=== PATIENT | female | born 1930 | race Caucasian/White ===

== ENCOUNTER 2018-07-07 10:35 | Emergency (ER) | payer MEDICARE, OTHER ==
--- NOTE | 2018-07-07 10:55 | EDM.PDOC ---
ED HPI GENERAL MEDICAL PROBLEM - General Stated Complaint: SOB Time Seen by Provider: 07/07/18 10:35 Source of Information: Reports: Patient, EMS, Family History Limitations: Reports: Altered Mental Status - History of Present Illness INITIAL COMMENTS - FREE TEXT/NARRATIVE: 87 y.o.w.f with a H/O Dementia came from an independent living place to the ED by EMS due to CP and SOB. BP at the scene 210/120 and her pulse ox was 88. As the pt arrived here in the ED, Chest pain subsided and her vitals were nl, not using O2. No Chest pain. Pt felt in her usual state of health. No N/V/D or any other acute med issues. BP 119/85 RR 18 Pulse ox 95% on RA Pulse 78 Temp 36.4 Onset Date: 07/07/18 Onset Time: 06:00 Duration: Intermittent Location: Reports: Chest Quality: Reports: Other (SOB) Severity: Moderate Improves with: Reports: None Worsens with: Reports: None Context: Reports: Other Associated Symptoms: Reports: Shortness of Breath, Other (H/O dementia) - Related Data Allergies Allergy/AdvReac Type Severity Reaction Status Date / Time Penicillins Allergy Cannot Verified 07/07/18 11:09 Remember venom-honey bee Allergy Hives Verified 07/07/18 11:09 [bee venom (honey bee)] Home Meds: Home Meds Donepezil HCl 10 mg PO DAILY 04/09/14 [History] Memantine HCl [Namenda Xr] 14 mg PO DAILY 05/24/14 [History] Calcium Citrate/Vitamin D2 [Calcium with Vit D Tablet] 1 each PO DAILY 07/07/18 [History] Cetirizine [ZyrTEC] 10 mg PO DAILY 07/07/18 [History] Cholecalciferol (Vitamin D3) [Vitamin D] 1 tab PO DAILY 07/07/18 [History] Cyanocobalamin (Vitamin B12) [Vitamin B12] 1,000 mcg PO DAILY 07/07/18 [History] Ferrous Sulfate 325 mg PO Q48H 07/07/18 [History] Furosemide 20 mg PO DAILY 07/07/18 [History] Multivitamin [Multi-Day Vitamins] 1 each PO DAILY 07/07/18 [History] ED ROS GENERAL - Review of Systems Review Of Systems: Unable To Obtain (Dementia) ED EXAM, GENERAL - Physical Exam Exam: See Below Exam Limited By: Altered Mental Status General Appearance: Alert, WD/WN, Mild Distress Eye Exam: Bilateral Eye: Normal Inspection Ears: Normal External Exam Ear Exam: Bilateral Ear: Auricle Normal Nose: Normal Inspection, Normal Mucosa, No Blood Throat/Mouth: Normal Inspection, Normal Lips, Normal Voice, No Airway Compromise Head: Atraumatic, Normocephalic Neck: Normal Inspection, Supple, Non-Tender, Full Range of Motion Respiratory/Chest: No Respiratory Distress, Lungs Clear, Normal Breath Sounds, No Accessory Muscle Use, Chest Non-Tender Cardiovascular: Normal Peripheral Pulses, Regular Rate, Rhythm, No Edema, No Gallop, No JVD Peripheral Pulses: 1+: Radial (L) Psychiatric: Other (dementia) Skin Exam: Warm, Dry, Intact, Normal Color, No Rash Lymphatic: No Adenopathy EKG INTERPRETATION EKG Date: 07/07/18 Time: 10:40 Rhythm: NSR Rate (Beats/Min): 78 [place]: Normal P-Wave: Present QRS: Normal ST-T: Normal QT: Normal Comparison: NA - No Prior EKG Course - Vital Signs Text/Narrative:: 87 y.o.w.f with a H/O Dementia came from an independent living place to the ED by EMS due to CP and SOB. BP at the scene 210/120 and her pulse ox was 88. As the pt arrived here in the ED, Chest pain subsided and her vitals were nl, not using O2. No Chest pain. Pt felt in her usual state of health. No N/V/D or any other acute med issues. BP 119/85 RR 18 Pulse ox 95% on RA Pulse 78 Temp 36.4 PE: WNWD W F with a H/O Dementia in her usual state of health Imaging: CXR: NAD as per RAD Labs: CBC, BMP, UA nl D-Dimer was 1.1 (elevated) however) Impression: Dementia, D- Dimer elevated, cause not determined Tx: None 12.40 pm: Family denied further W/U for the elevated D Dimer since the pt's vitals are were stable while here in the ED Reexam: Pt was stable in the ED Plan: D/C with instructions with Family's PC Last Recorded V/S: Last Vital Signs Temp 36.3 C 07/07/18 10:35 Pulse 75 07/07/18 12:00 Resp 16 07/07/18 12:00 BP 86/70 L 07/07/18 12:00 Pulse Ox 96 07/07/18 12:00 - Orders/Labs/Meds Orders: Active Orders 24 hr Category Date Time Status CXR [Chest 1V Frontal] [CR] Stat Exams 07/07/18 10:47 Taken Sodium Chloride 0.9% [Saline Flush] Med 07/07/18 11:00 Active 10 ml FLUSH ASDIRECTED PRN EKG 12 Lead [EK] Routine Ther 07/07/18 11:11 Ordered Medication Orders Sodium Chloride (Saline Flush) 10 ml FLUSH ASDIRECTED PRN PRN Reason: IV Use Last Admin: 07/07/18 11:00 Dose: 10 ml Labs: Laboratory Tests 07/07/18 07/07/18 07/07/18 Range/Units 10:55 10:55 10:55 WBC 7.6 (4.5-12.0) X10-3/uL RBC 4.57 (3.23-5.20) x10(6)uL Hgb 14.3 (11.5-15.5) g/dL Hct 41.9 (30.0-51.3) % MCV 91.6 (80-96) fL MCH 31.2 (27.7-33.6) pg MCHC 34.1 (32.2-35.4) g/dL RDW 12.7 (11.5-15.5) % Plt Count 263 (125-369) X10(3)uL MPV 8.9 (7.4-10.4) fL Neut % (Auto) 60.7 (46-82) % Lymph % (Auto) 25.1 (13-37) % [place] % (Auto) 8.0 (4-12) % Eos % (Auto) 6 H (1.0-5.0) % Baso % (Auto) 1 (0-2) % Neut # (Auto) 4.7 (1.6-8.3) # Lymph # (Auto) 1.9 (0.6-5.0) # [place] # (Auto) 0.6 (0.0-1.3) # Eos # (Auto) 0.4 (0.0-0.8) # Baso # (Auto) 0.0 (0.0-0.2) # PT 9.7 (8.7-11.1) INR 1.00 (0.89-1.13) D-Dimer, Quantitative (0.0-0.59) mg/LFEU Sodium 144 (135-145) mmol/L Potassium 3.8 (3.5-5.3) mmol/L Chloride 105 (100-110) mmol/L Carbon Dioxide 28 (21-32) mmol/L BUN 15 (7-18) mg/dL Creatinine 1.0 (0.55-1.02) mg/dL Est Cr Clr Drug Dosing TNP Estimated GFR (MDRD) 53 L (>60) BUN/Creatinine Ratio 15.0 (9-20) Glucose 96 (80-116) mg/dL Calcium 9.2 (8.6-10.2) mg/dL Total Bilirubin 0.4 (0.1-1.3) mg/dL Direct Bilirubin 0.10 (0.10-0.20) mg/dL AST 25 (5-25) IU/L ALT 24 (12-36) U/L Alkaline Phosphatase 91 (56-112) IU/L Troponin I (<0.017-0.056) ng/mL Total Protein 7.0 (6.0-8.0) g/dL Albumin 3.4 (3.2-4.6) g/dL Urine Color (YELLOW) Urine Appearance (CLEAR) Urine pH (5.0-6.5) Ur Specific [place] (1.010-1.025) Urine Protein (NEGATIVE) mg/dL Urine Glucose (UA) (NORMAL) mg/dL Urine Ketones (NEGATIVE) mg/dL Urine Occult Blood (NEGATIVE) Urine Nitrite (NEGATIVE) Urine Bilirubin (NEGATIVE) Urine Urobilinogen (NEGATIVE) mg/dL Ur Leukocyte Esterase (NEGATIVE) Urine RBC (0-5) Urine WBC (0-5) Ur Squamous Epith Cells (NS,R,O) 07/07/18 07/07/18 07/07/18 Range/Units 10:57 10:57 11:00 WBC (4.5-12.0) X10-3/uL RBC (3.23-5.20) x10(6)uL Hgb (11.5-15.5) g/dL Hct (30.0-51.3) % MCV (80-96) fL MCH (27.7-33.6) pg MCHC (32.2-35.4) g/dL RDW (11.5-15.5) % Plt Count (125-369) X10(3)uL MPV (7.4-10.4) fL Neut % (Auto) (46-82) % Lymph % (Auto) (13-37) % [place] % (Auto) (4-12) % Eos % (Auto) (1.0-5.0) % Baso % (Auto) (0-2) % Neut # (Auto) (1.6-8.3) # Lymph # (Auto) (0.6-5.0) # [place] # (Auto) (0.0-1.3) # Eos # (Auto) (0.0-0.8) # Baso # (Auto) (0.0-0.2) # PT (8.7-11.1) INR (0.89-1.13) D-Dimer, Quantitative 1.11 H (0.0-0.59) mg/LFEU Sodium (135-145) mmol/L Potassium (3.5-5.3) mmol/L Chloride (100-110) mmol/L Carbon Dioxide (21-32) mmol/L BUN (7-18) mg/dL Creatinine (0.55-1.02) mg/dL Est Cr Clr Drug Dosing Estimated GFR (MDRD) (>60) BUN/Creatinine Ratio (9-20) Glucose (80-116) mg/dL Calcium (8.6-10.2) mg/dL Total Bilirubin (0.1-1.3) mg/dL Direct Bilirubin (0.10-0.20) mg/dL AST (5-25) IU/L ALT (12-36) U/L Alkaline Phosphatase (56-112) IU/L Troponin I < 0.017 L (<0.017-0.056) ng/mL Total Protein (6.0-8.0) g/dL Albumin (3.2-4.6) g/dL Urine Color Yellow (YELLOW) Urine Appearance Clear (CLEAR) Urine pH 7.0 H (5.0-6.5) Ur Specific [place] 1.010 (1.010-1.025) Urine Protein Negative (NEGATIVE) mg/dL Urine Glucose (UA) Normal (NORMAL) mg/dL Urine Ketones Negative (NEGATIVE) mg/dL Urine Occult Blood Negative (NEGATIVE) Urine Nitrite Negative (NEGATIVE) Urine Bilirubin Negative (NEGATIVE) Urine Urobilinogen Normal (NEGATIVE) mg/dL Ur Leukocyte Esterase Negative (NEGATIVE) Urine RBC 0-5 (0-5) Urine WBC 0-5 (0-5) Ur Squamous Epith Cells Occasional (NS,R,O) Meds: Medications Generic Name Dose Route Start Last Admin Trade Name Freq PRN Reason Stop Dose Admin Sodium Chloride 10 ml 07/07/18 11:00 07/07/18 11:00 Saline Flush FLUSH 10 ml ASDIRECTED PRN Administration IV Use Departure - Departure Time of Disposition: 12:37 Disposition: Home, Self-Care 01 Condition: Good Clinical Impression: Elevated d-dimer Dementia Qualifiers: Dementia type: unspecified type - Discharge Information Instructions: D-Dimer Test Referrals: Greg Hernandez MD [Primary Care Provider] - Forms: ED Department Discharge Additional Instructions: Please cont your meds, please f/u, come back if your symptoms get worse acutely - My Orders Last 24 Hours: My Active Orders 07/07/18 10:47 CXR [Chest 1V Frontal] [CR] Stat 07/07/18 11:00 Sodium Chloride 0.9% [Saline Flush] 10 ml FLUSH ASDIRECTED PRN 07/07/18 11:11 EKG 12 Lead [EK] Routine - Assessment/Plan Last 24 Hours: My Active Orders 07/07/18 10:47 CXR [Chest 1V Frontal] [CR] Stat 07/07/18 11:00 Sodium Chloride 0.9% [Saline Flush] 10 ml FLUSH ASDIRECTED PRN 07/07/18 11:11 EKG 12 Lead [EK] Routine
[2018-07-07] MEDS ORDERED: Sodium Chloride 0.9% 10 ML Syringe FLUSH PRN (11:00)
[2018-07-07 12:28] VITALS: BP 86/70
== END 2018-07-07 12:50 | disposition home or self-care (01) ==
LOC: FB.ED 10:35
DX: F03.90 Unspecified dementia, unspecified severity, without behavioral disturbance, psychotic disturbance, mood disturbance, and anxiety (principal); R79.89 Other specified abnormal findings of blood chemistry; Z79.899 Other long term (current) drug therapy; Z88.0 Allergy status to penicillin; Z91.030 Bee allergy status
CPT/HCPCS: 36415; 71045; 80048; 80076; 81001; 84484; 85025; 85379; 85610; 93005; 99285-25